=== PATIENT | male | born 1965 | race Caucasian/White ===

== ENCOUNTER → 2017-01-17 | Outpatient (CLI) | payer MEDICARE ==
[~2017-01-17] MED LIST: ALPR-475 PO; AMIO400T4 PO; ASPI-621 PO; CITA10TA8 PO; FENO150C4 PO; HYDR-3138 PO; LOSA25TA5 PO; METF500T4 PO; METO25TA35 PO; METO50TA3 PO; NITR0.4T8 SL; OXYC5TAB3 PO; PREG75CA PO; RIVA20TA PO; SIMV40TA PO
[2017-01-17 11:52] LABS: ASPARTATE AMINO TRANSFERASE 22 U/L (15-37); BLOOD UREA NITROGEN 13 mg/dL (7-18)
== END | disposition home or self-care (01) ==
LOC: CFH 08:31
PROVIDERS: ATTEND Internal Medicine Cardiovascular Disease
DX: E11.65 Type 2 diabetes mellitus with hyperglycemia (principal); E78.4 Other hyperlipidemia; I10 Essential (primary) hypertension; I42.8 Other cardiomyopathies; E78.5 Hyperlipidemia, unspecified
CPT/HCPCS: 36415; 80053; 80061; 84436; 84481; 85025

== ENCOUNTER → 2017-01-31 | Outpatient (CLI) | payer MEDICARE | END | disposition home or self-care (01) | LOC: CFH 09:55 | PROVIDERS: ATTEND Internal Medicine Cardiovascular Disease | DX: I34.0 Nonrheumatic mitral (valve) insufficiency (principal); I07.1 Rheumatic tricuspid insufficiency; I37.1 Nonrheumatic pulmonary valve insufficiency | CPT/HCPCS: 93306 ==

== ENCOUNTER 2017-03-24 17:26 | Observation (INO) | payer MEDICARE ==
[~2017-03-24] VITALS: Ht 167.6 cm; Wt 66.5 kg
[2017-03-24 18:01] LABS: ASPARTATE AMINO TRANSFERASE 14 U/L (15-37); BLOOD UREA NITROGEN 9 mg/dL (7-18)
[2017-03-24 18:06] LABS: IS PT STATUS REG ER OR PRE ER? YES
[2017-03-24] MEDS ORDERED: LOSA100T6 PO (18:41)
[2017-03-24] MEDS ORDERED: BUSP7.5T3 PO (18:43)
[2017-03-24] MEDS ORDERED: DULO40CA2 PO (18:45)
[2017-03-24] MEDS ORDERED: POLYETHYLENE GLYCOL 17 GM PACKET PO PRN (20:30)
[2017-03-24] MEDS ORDERED: HYDROcodone/APAP 5/325 TABLET PO PRN (20:30)
[2017-03-24] MEDS ORDERED: LABETALOL 5MG/ML 40ML VIAL IVPush PRN (20:30)
[2017-03-24] MEDS ORDERED: DOCUSATE 100 MG CAPSULE PO PRN (20:30)
[2017-03-24] MEDS ORDERED: morphine SULFATE 10 MG/ML, 1ML IVPush PRN (20:30)
[2017-03-24] MEDS ORDERED: LORazepam 1MG TABLET PO PRN (20:30)
[2017-03-24] MEDS ORDERED: ACETAMINOPHEN 325 MG TABLET PO PRN (20:30)
[2017-03-24] MEDS ORDERED: ONDANSETRON 2MG/ML, 2ML IVPush PRN (20:30)
[2017-03-24] MEDS ORDERED: BISACODYL 10 MG SUPP PR PRN (20:30)
[2017-03-24] MEDS ORDERED: NITROGLYCERIN 0.4 MG BOTTLE (25 TABS) SL PRN (21:00)
[2017-03-24] MEDS: METOPROLOL TARTRATE 50 MG TABLET PO SCH (21:26)
[2017-03-24] MEDS: SODIUM CHLORIDE FLUSH 10ML SYR IVF SCH (21:26)
[2017-03-24 21:30] VITALS: BP_SYST 142; BP_SYST 154; BP_SYST 173; BP_DIAS 79; BP_DIAS 84; BP_DIAS 90
[2017-03-24] MEDS ORDERED: MORPHINE SULFATE 4 MG/ML, 1ML ONE (22:00)
[2017-03-25 02:55] VITALS: BP 117/68
[2017-03-25 05:18] LABS: BLOOD UREA NITROGEN 11 mg/dL (7-18)
[2017-03-25 05:28] LABS: IS PT STATUS REG ER OR PRE ER? NO
[2017-03-25 07:02] VITALS: BP 125/80
[2017-03-25 07:03] VITALS: BP_SYST 111; BP_SYST 117; BP_DIAS 75; BP_DIAS 76
[2017-03-25] MEDS: METOPROLOL TARTRATE 50 MG TABLET PO SCH (08:47)
[2017-03-25] MEDS: SODIUM CHLORIDE FLUSH 10ML SYR IVF SCH (08:48)
[2017-03-25] MEDS ORDERED: metFORMIN 500 MG TABLET PO SCH (09:00)
[2017-03-25] MEDS ORDERED: RIVAROXABAN 20 MG TABLET PO SCH (09:00)
[2017-03-25] MEDS ORDERED: AMIODARONE 200 MG TABLET PO SCH (09:00)
[2017-03-25] MEDS ORDERED: DULOXETINE 20 MG CAPSULE.DR PO SCH (09:00)
[2017-03-25] MEDS ORDERED: SIMVASTATIN 40 MG TABLET PO SCH (09:00)
[2017-03-25] MEDS ORDERED: BUSPIRONE 10 MG TABLET PO SCH (09:00)
[2017-03-25] MEDS ORDERED: LOSARTAN 50MG TABLET PO SCH (09:00)
== END 2017-03-25 14:38 | disposition home or self-care (01) ==
LOC: ED 19:05 → INTOOBSV 19:50 → EDIP 19:50 → 4EST 21:18 → DCLOUNGE 03-25 14:17 → UNDODISIN 03-25 14:38
PROVIDERS: ADMIT Internal Medicine; ATTEND Internal Medicine
DX: R07.9 Chest pain, unspecified (principal); R52 Pain, unspecified; I11.0 Hypertensive heart disease with heart failure; I50.22 Chronic systolic (congestive) heart failure; E11.65 Type 2 diabetes mellitus with hyperglycemia; I48.91 Unspecified atrial fibrillation; Z95.0 Presence of cardiac pacemaker; Z82.5 Family history of asthma and other chronic lower respiratory diseases; Z82.49 Family history of ischemic heart disease and other diseases of the circulatory system
CPT/HCPCS: 36415; 71010; 72110; 80048; 80053; 81003; 82607; 82746; 83880; 84443; 84484; 85025; 85610; 85730; 93005; 96374; 99285; G0378; J2270

== ENCOUNTER → 2017-04-25 | Outpatient (CLI) | payer MEDICARE ==
[~2017-04-25] MED LIST changes: +BUSP7.5T3 PO; +DULO40CA2 PO; +LOSA100T6 PO
[2017-04-25 13:04] LABS: BLOOD UREA NITROGEN 12 mg/dL (7-18)
[2017-04-25 13:16] LABS: ASPARTATE AMINO TRANSFERASE 16 U/L (15-37)
== END | disposition home or self-care (01) ==
LOC: CFH 09:39
PROVIDERS: ATTEND Physician Assistant Medical
DX: E78.5 Hyperlipidemia, unspecified (principal); E11.65 Type 2 diabetes mellitus with hyperglycemia; I10 Essential (primary) hypertension; I42.8 Other cardiomyopathies; I48.91 Unspecified atrial fibrillation
CPT/HCPCS: 36415; 80053; 80061; 84436; 84481; 85025

== ENCOUNTER → 2017-12-12 | Outpatient (CLI) | payer MEDICARE ==
[~2017-12-12] MED LIST changes: -AMIO400T4 PO; +AMIO400T5 PO; -HYDR-3138 PO; +HYDR-3237 PO; -METO50TA3 PO; +METO50TA6 PO; +NITR0.4T28 SL; -NITR0.4T8 SL
[2017-12-12 12:51] LABS: ALANINE AMINOTRANSFERASE 32 U/L (12-78); ALBUMIN 4.1 g/dL (3.4-5.0); ANION GAP 8 mmol/L (5-15); CALCIUM 8.5 mg/dL (8.5-10.1); CHLORIDE 105 mmol/L (98-107); CREATININE 1.18 mg/dL (0.7-1.3)
[2017-12-12 13:02] LABS: ALKALINE PHOSPHATASE 55 U/L (45-117); BILIRUBIN,TOTAL 0.4 mg/dL (0.2-1.0); T4 (THYROXINE) 12.8 mcg/dL (4.5-12.1); TOTAL PROTEIN 8.1 g/dL (6.4-8.2)
== END | disposition home or self-care (01) ==
LOC: CFH 08:16
PROVIDERS: ATTEND Physician Assistant
DX: I10 Essential (primary) hypertension (principal); E11.65 Type 2 diabetes mellitus with hyperglycemia; Z79.899 Other long term (current) drug therapy
CPT/HCPCS: 36415; 80053; 84436; 84443; 84481

== ENCOUNTER → 2017-12-18 | Outpatient (CLI) | payer MEDICARE | END | disposition home or self-care (01) | LOC: CFH 11:23 | PROVIDERS: ATTEND Internal Medicine Cardiovascular Disease | DX: R06.02 Shortness of breath (principal); E78.5 Hyperlipidemia, unspecified; I10 Essential (primary) hypertension; R07.9 Chest pain, unspecified; Z95.810 Presence of automatic (implantable) cardiac defibrillator | CPT/HCPCS: 71046 ==

== ENCOUNTER → 2018-06-18 | Outpatient (CLI) | payer MEDICARE ==
[~2018-06-18] MED LIST changes: -LOSA100T6 PO; +LOSA100T7 PO; -LOSA25TA5 PO; +LOSA25TA6 PO; +METF500T17 PO; -METF500T4 PO
[2018-06-18 12:33] LABS: BASOPHILS # (AUTO) 0.02 x10^3/uL (0-0.1); BASOPHILS % (AUTO) 0 % (0-1); EOSINOPHILS # (AUTO) 0.36 x10^3/uL (0-0.4); EOSINOPHILS % (AUTO) 5 % (1-7); LYMPHOCYTES # (AUTO) 2.55 x10^3/uL (1-3.4); LYMPHOCYTES % (AUTO) 35 % (22-44); MD NO; MEAN CORPUSCULAR HEMOGLOBIN 26.9 pg (27.5-34.5); MEAN CORPUSCULAR HGB CONC 32.6 g/dL (33.2-36.2); MEAN CORPUSCULAR VOLUME 82.4 fL (81-97); MEAN PLATELET VOLUME 10.4 fL (7.4-10.4); MONOCYTES # (AUTO) 0.48 x10^3/uL (0.2-0.8); MONOCYTES % (AUTO) 7 % (2-9); NEUTROPHILS # (AUTO) 3.88 x10^3/uL (1.8-6.8); NEUTROPHILS % (AUTO) 53 % (42-75); PLATELET COUNT 199 x10^3/uL (130-400); RED BLOOD COUNT 5.64 x10^6/uL (4.38-5.82); RED CELL DISTRIBUTION WIDTH 12.6 % (9.4-14.8)
[2018-06-18 12:45] LABS: ALANINE AMINOTRANSFERASE 82 U/L (12-78); ALBUMIN 3.6 g/dL (3.4-5.0); ANION GAP 10 mmol/L (5-15); CALCIUM 8.9 mg/dL (8.5-10.1); CHLORIDE 110 mmol/L (98-107); CHOLESTEROL, TOTAL 145 mg/dL (140-239); CREATININE 0.93 mg/dL (0.7-1.3); TRIGLYCERIDES 462 mg/dL (50-200)
[2018-06-18 12:48] LABS: ALKALINE PHOSPHATASE 61 U/L (45-117); BILIRUBIN,TOTAL 0.4 mg/dL (0.2-1.0); TOTAL PROTEIN 7.2 g/dL (6.4-8.2)
[2018-06-18 12:49] LABS: CHOL/HDL RATIO 5.4; HDL CHOL % 19 % (26-37); HDL CHOLESTEROL (DIRECT) 27 mg/dL (40-60)
== END | disposition home or self-care (01) ==
LOC: CFH 07:13
PROVIDERS: ATTEND Internal Medicine Cardiovascular Disease
DX: I10 Essential (primary) hypertension (principal); E78.5 Hyperlipidemia, unspecified; E78.4 Other hyperlipidemia
CPT/HCPCS: 36415; 80053; 80061; 85025

== ENCOUNTER → 2019-09-09 | Outpatient (CLI) | payer MEDICARE ==
[~2019-09-09] MED LIST changes: -ALPR-475 PO; +ALPR0.5T7 PO; -ASPI-621 PO; +ASPI81TA45 PO; +LOSA100T14 PO; -LOSA100T7 PO; +LOSA25TA25 PO; -LOSA25TA6 PO
[2019-09-09 13:02] LABS: BASOPHILS # (AUTO) 0.02 x10^3/uL (0-0.1); BASOPHILS % (AUTO) 0 % (0-1); EOSINOPHILS # (AUTO) 0.35 x10^3/uL (0-0.4); EOSINOPHILS % (AUTO) 5 % (1-7); LYMPHOCYTES # (AUTO) 2.29 x10^3/uL (1-3.4); LYMPHOCYTES % (AUTO) 31 % (22-44); MD NO; MEAN CORPUSCULAR HEMOGLOBIN 27.3 pg (27.5-34.5); MEAN CORPUSCULAR HGB CONC 32.3 g/dL (33.2-36.2); MEAN CORPUSCULAR VOLUME 84.8 fL (81-97); MEAN PLATELET VOLUME 9.8 fL (7.4-10.4); MONOCYTES # (AUTO) 0.44 x10^3/uL (0.2-0.8); MONOCYTES % (AUTO) 6 % (2-9); NEUTROPHILS % (AUTO) 58 % (42-75); PLATELET COUNT 234 x10^3/uL (130-400); RED BLOOD COUNT 5.94 x10^6/uL (4.38-5.82); RED CELL DISTRIBUTION WIDTH 13.4 % (9.4-14.8)
[2019-09-09 13:15] LABS: ALANINE AMINOTRANSFERASE 48 U/L (12-78); ANION GAP 3 mmol/L (5-15); CHLORIDE 109 mmol/L (98-107); CREATININE 1.15 mg/dL (0.7-1.3)
[2019-09-09 13:24] LABS: ALKALINE PHOSPHATASE 78 U/L (45-117); BILIRUBIN,TOTAL 0.6 mg/dL (0.2-1.0); CHOL/HDL RATIO 5.8; CHOLESTEROL, TOTAL 197 mg/dL (140-239); HDL CHOL % 17 % (26-37); HDL CHOLESTEROL (DIRECT) 34 mg/dL (40-60); LDL CHOLESTEROL,CALCULATED 89 mg/dL (54-169); LDL/HDL RATIO 2.6 (0.5-3.0); T4 (THYROXINE) 11.2 mcg/dL (4.5-12.1); TRIGLYCERIDES 372 mg/dL (50-200); VLDL CHOLESTEROL 74 mg/dL (0-25)
== END | disposition home or self-care (01) ==
LOC: CFH 07:51
PROVIDERS: ATTEND Internal Medicine Cardiovascular Disease
DX: I08.2 Rheumatic disorders of both aortic and tricuspid valves (principal); I42.8 Other cardiomyopathies; I11.9 Hypertensive heart disease without heart failure; E11.65 Type 2 diabetes mellitus with hyperglycemia; E78.5 Hyperlipidemia, unspecified; I48.20 Chronic atrial fibrillation, unspecified; I48.91 Unspecified atrial fibrillation; Z95.810 Presence of automatic (implantable) cardiac defibrillator
CPT/HCPCS: 36415; 80053; 80061; 84436; 84481; 85025; 93306

== ENCOUNTER 2020-02-12 05:26 | Emergency (ER) | payer MEDICARE ==
[~2020-02-12] VITALS: Ht 167.6 cm; Wt 65.0 kg
[~2020-02-12 05:26] MED LIST changes: -BUSP7.5T3 PO; +BUSP7.5T5 PO
--- NOTE | 2020-02-12 05:49 | NUR ---
PT PLACED ON MACHINE II CUTTER AND CONTINUOUS PULSE OX. HR IN THE 80S. PT GIVEN URINAL. CALL LIGHT WITHIN REACH AND XRAY TO BEDSIDE.
[2020-02-12] MEDS ORDERED: SODIUM CHLORIDE FLUSH 10ML SYR IVF ONE (06:00)
[2020-02-12 06:13] LABS: CALCIUM 8.2 mg/dL (8.5-10.1); CHLORIDE 112 mmol/L (98-107)
--- NOTE | 2020-02-12 06:14 | NUR ---
ICD INTERROGATED AND INFORMATION SENT [place]. PT PROVIDED WITH WARM BLANKET AND RESTING AT THIS TIME. CALL LIGHT WITHIN REACH.
[2020-02-12 06:21] LABS: ALANINE AMINOTRANSFERASE 50 U/L (12-78); ALBUMIN 3.5 g/dL (3.4-5.0); ALKALINE PHOSPHATASE 65 U/L (45-117); ANION GAP 5 mmol/L (5-15); BILIRUBIN,TOTAL 0.3 mg/dL (0.2-1.0); CREATININE 0.98 mg/dL (0.7-1.3); TOTAL PROTEIN 7.5 g/dL (6.4-8.2)
[2020-02-12 06:27] LABS: TROPONIN I 0.151 ng/mL (0.000-0.045)
[2020-02-12 06:37] LABS: BASOPHILS # (AUTO) 0.03 x10^3/uL (0-0.1); BASOPHILS % (AUTO) 0 % (0-1); EOSINOPHILS # (AUTO) 0.44 x10^3/uL (0-0.4); EOSINOPHILS % (AUTO) 6 % (1-7); LYMPHOCYTES # (AUTO) 3.09 x10^3/uL (1-3.4); LYMPHOCYTES % (AUTO) 39 % (22-44); MD NO; MEAN CORPUSCULAR HEMOGLOBIN 27.2 pg (27.5-34.5); MEAN CORPUSCULAR HGB CONC 32.7 g/dL (33.2-36.2); MEAN CORPUSCULAR VOLUME 83.1 fL (81-97); MEAN PLATELET VOLUME 9.5 fL (7.4-10.4); MONOCYTES # (AUTO) 0.58 x10^3/uL (0.2-0.8); MONOCYTES % (AUTO) 7 % (2-9); NEUTROPHILS # (AUTO) 3.82 x10^3/uL (1.8-6.8); NEUTROPHILS % (AUTO) 48 % (42-75); PLATELET COUNT 239 x10^3/uL (130-400); RED BLOOD COUNT 5.74 x10^6/uL (4.38-5.82); RED CELL DISTRIBUTION WIDTH 13.9 % (9.4-14.8)
--- NOTE | 2020-02-12 06:55 | NUR ---
REPORT GIVEN TO LUCILA ARAYA
--- NOTE | 2020-02-12 06:59 | NUR ---
REPORT FROM QUIANA HUTCHINS. PT LAYING BACK IN BED USING CELL PHONE. NAD NOTED AT THIS TIME. SIDE RAILS UP.
[2020-02-12] MEDS ORDERED: DIGOXIN 0.25 MG/ML, 2ML ONE (07:52)
[2020-02-12] MEDS ORDERED: AMIODARONE 200 MG TABLET ONE (07:52)
[2020-02-12] MEDS ORDERED: AMIODARONE 200 MG TABLET PO ONE (08:00)
[2020-02-12] MEDS ORDERED: DIGOXIN 0.25 MG/ML, 2ML IVPush ONE (08:00)
--- NOTE | 2020-02-12 08:00 | NUR ---
MEDS ADMINISTERED PER EMAR. PT TO BE MONITORED OVER 45 MIN WITH MEDS. NAD NOTED AT THIS TIME. HOB TO LEVEL OF COMFORT. SIDE RAILS UP, CALL LIGHT IN REACH.
--- NOTE | 2020-02-12 08:50 | NUR ---
PT CHART UP FOR RECHECK. NAD NOTED IN PT. BEAR WARMER GIVEN AND HOB MOVED FOR COMFORT. AWAITING ERMD RECHECK.
[2020-02-12 09:04] VITALS: BP 142/91
== END 2020-02-12 10:09 | disposition home or self-care (01) ==
LOC: ED 05:57
DX: I48.20 Chronic atrial fibrillation, unspecified (principal); R79.89 Other specified abnormal findings of blood chemistry; G31.2 Degeneration of nervous system due to alcohol; R07.89 Other chest pain; E11.9 Type 2 diabetes mellitus without complications; Z95.0 Presence of cardiac pacemaker
CPT/HCPCS: 36415; 71045; 80053; 83735; 83880; 84484; 85025; 93005; 96374; 99285; J1160

== ENCOUNTER → 2020-05-02 | Outpatient (CLI) | payer MEDICARE ==
[2020-05-02 12:54] LABS: CHLORIDE 110 mmol/L (98-107)
[2020-05-02 13:13] LABS: ALANINE AMINOTRANSFERASE 30 U/L (12-78); ALBUMIN 4.2 g/dL (3.4-5.0); ALKALINE PHOSPHATASE 61 U/L (45-117); ANION GAP 4 mmol/L (5-15); BILIRUBIN,TOTAL 0.4 mg/dL (0.2-1.0); CALCIUM 8.6 mg/dL (8.5-10.1); CHOL/HDL RATIO 2.8; CHOLESTEROL, TOTAL 108 mg/dL (140-239); CREATININE 1.18 mg/dL (0.7-1.3); HDL CHOL % 35 % (26-37); HDL CHOLESTEROL (DIRECT) 38 mg/dL (40-60); LDL CHOLESTEROL,CALCULATED 45 mg/dL (54-169); LDL/HDL RATIO 1.2 (0.5-3.0); TOTAL PROTEIN 8.1 g/dL (6.4-8.2); TRIGLYCERIDES 124 mg/dL (50-200); VLDL CHOLESTEROL 25 mg/dL (0-25)
== END | disposition home or self-care (01) ==
LOC: CFH 07:34
PROVIDERS: ATTEND Registered Nurse
DX: E11.65 Type 2 diabetes mellitus with hyperglycemia (principal); E78.1 Pure hyperglyceridemia; E78.5 Hyperlipidemia, unspecified; I10 Essential (primary) hypertension; I48.91 Unspecified atrial fibrillation
CPT/HCPCS: 36415; 80053; 80061; 83036

== ENCOUNTER 2020-05-20 00:19 | Emergency (ER) | payer MEDICARE ==
[~2020-05-20] VITALS: Ht 167.6 cm; Wt 70.7 kg
--- NOTE | 2020-05-20 00:36 | NUR ---
PT BIB [facility] C/O REPRODUCABLE CHEST PAIN UNDER ICD SITE AND HTN. PT TOOK [place] OFFICE ASSISTANT RECEPTIONIST, HTN RESOLVED. PT ADMITS TO BEING NONCOMPLIANT WITH HTN MEDS DUE TO FEAR OF KIDNEY COMPLICATIONS. EKG DONE ON ARRIVAL, MONITORS IN PLACE, CALL LIGHT WITHIN REACH.
--- NOTE | 2020-05-20 01:19 | NUR ---
BREAK RN: PT GIVEN A WARM BLANKET. WET CHAR CONVEYOR TENDER ON. NSR NOTED. CALL LIGHT IN PLACE. WILL CONTINUE TO MONITOR WHILE PRIMARY RN IS ON BREAK.
[2020-05-20 01:52] LABS: BASOPHILS # (AUTO) 0.03 x10^3/uL (0-0.1); BASOPHILS % (AUTO) 0 % (0-1); EOSINOPHILS # (AUTO) 0.45 x10^3/uL (0-0.4); EOSINOPHILS % (AUTO) 5 % (1-7); LYMPHOCYTES # (AUTO) 3.25 x10^3/uL (1-3.4); LYMPHOCYTES % (AUTO) 37 % (22-44); MEAN CORPUSCULAR HEMOGLOBIN 27.6 pg (27.5-34.5); MEAN CORPUSCULAR HGB CONC 32.7 g/dL (33.2-36.2); MEAN CORPUSCULAR VOLUME 84.3 fL (81-97); MEAN PLATELET VOLUME 9.7 fL (7.4-10.4); MONOCYTES # (AUTO) 0.71 x10^3/uL (0.2-0.8); MONOCYTES % (AUTO) 8 % (2-9); NEUTROPHILS # (AUTO) 4.33 x10^3/uL (1.8-6.8); NEUTROPHILS % (AUTO) 49 % (42-75); PLATELET COUNT 236 x10^3/uL (130-400); RED BLOOD COUNT 5.38 x10^6/uL (4.38-5.82); RED CELL DISTRIBUTION WIDTH 13.4 % (9.4-14.8)
[2020-05-20 01:54] LABS: ANION GAP 5 mmol/L (5-15); CALCIUM 9.2 mg/dL (8.5-10.1); CHLORIDE 108 mmol/L (98-107); CREATININE 1.14 mg/dL (0.7-1.3)
[2020-05-20 01:55] LABS: MD NO
[2020-05-20 01:57] LABS: TROPONIN I < 0.015 ng/mL (0.000-0.045)
[2020-05-20 04:11] VITALS: BP 131/81
== END 2020-05-20 04:25 | disposition home or self-care (01) ==
LOC: ED 01:04
DX: R07.89 Other chest pain (principal); I48.91 Unspecified atrial fibrillation; E11.9 Type 2 diabetes mellitus without complications; Z95.0 Presence of cardiac pacemaker; Z87.891 Personal history of nicotine dependence
CPT/HCPCS: 36415; 71045; 80048; 82040; 84484; 85025; 93005; 99285

== ENCOUNTER 2020-12-08 21:08 | Emergency (ER) | payer MEDICARE ==
[~2020-12-08] VITALS: Ht 167.6 cm; Wt 70.0 kg
[~2020-12-08 21:08] MED LIST changes: -OXYC5TAB3 PO; +OXYC5TAB98 PO
--- NOTE | 2020-12-08 21:08 | NUR ---
PT BIBA. PER EMS PT HAS HAD CP EVERYDAY X 6MO. PER PT HE TAKES 6-8 NITRO TABS A DAY FOR PAIN, "BUT IT USUALLY DOESN'T HELP". PT ALSO TOOK 9 - 81MG ASPIRINS SINCE 1999 SINCE HE RAN OUT OF NITRO. PT RESTING IN [facility], MONITORING IN PLACE, EL AT THIS TIME, WCTM.
[2020-12-08 22:03] LABS: BASOPHILS % (AUTO) 1 % (0-1); EOSINOPHILS % (AUTO) 3 % (1-7); LYMPHOCYTES % (AUTO) 21 % (22-44); MEAN CORPUSCULAR HEMOGLOBIN 27.8 pg (27.5-34.5); MEAN CORPUSCULAR HGB CONC 33.6 g/dL (33.2-36.2); MEAN PLATELET VOLUME 8.5 fL (7.4-10.4); MONOCYTES % (AUTO) 9 % (2-9); NEUTROPHILS % (AUTO) 66 % (42-75); PLATELET COUNT 256 x10^3/uL (130-400); RED CELL DISTRIBUTION WIDTH 13.8 % (9.4-14.8)
[2020-12-08 22:04] LABS: MD NO
[2020-12-08 22:13] LABS: ALBUMIN 3.7 g/dL (3.4-5.0); ANION GAP 4 mmol/L (5-15); CALCIUM 8.2 mg/dL (8.5-10.1); CHLORIDE 108 mmol/L (98-107)
[2020-12-08 22:19] LABS: ALANINE AMINOTRANSFERASE 73 U/L (12-78); ALKALINE PHOSPHATASE 62 U/L (45-117); BILIRUBIN,TOTAL 0.2 mg/dL (0.2-1.0); CREATININE 1.21 mg/dL (0.7-1.3); TOTAL PROTEIN 7.3 g/dL (6.4-8.2); TROPONIN I < 0.015 ng/mL (0.000-0.045)
[2020-12-08] MEDS ORDERED: LORazepam 2 MG/ML, 1ML IVPush ONE (22:30)
[2020-12-08] MEDS ORDERED: LORazepam 1MG TABLET ONE (23:07)
[2020-12-08 23:25] VITALS: BP 136/76
[2020-12-08] MEDS ORDERED: LORazepam 1MG TABLET PO ONE (23:30)
--- NOTE | 2020-12-08 23:47 | NUR ---
DR. MCWILLIAMS AT BEDSIDE TO UPDATE PT ON POC.
== END 2020-12-09 | disposition home or self-care (01) ==
LOC: ED 21:51
DX: R07.89 Other chest pain (principal); R06.02 Shortness of breath; E11.9 Type 2 diabetes mellitus without complications; I48.91 Unspecified atrial fibrillation; R94.31 Abnormal electrocardiogram [ECG] [EKG]; Z95.0 Presence of cardiac pacemaker; Z87.891 Personal history of nicotine dependence
CPT/HCPCS: 36415; 71045; 80053; 84484; 85025; 93005; 99285